=== PATIENT | male | born 2000 | race Caucasian/White ===

== ENCOUNTER 2020-10-20 15:12 | Outpatient (CLI) | payer OTHER | END 2020-10-20 15:13 | disposition home or self-care (01) | LOC: BICMRI 15:12 | PROVIDERS: ATTEND Orthopaedic Surgery | DX: M23.91 Unspecified internal derangement of right knee (principal) ==

== ENCOUNTER 2020-10-27 16:14 | Outpatient (CLI) | payer OTHER ==
[2020-10-28 05:36] LABS: SARS-CoV-2 PCR by NAA Not Detected (NotDetected)
== END 2020-10-27 16:15 | disposition home or self-care (01) ==
LOC: LABBT 16:14
PROVIDERS: ATTEND Orthopaedic Surgery
DX: Z01.812 Encounter for preprocedural laboratory examination (principal); S83.004A Unspecified dislocation of right patella, initial encounter; Z20.822 Contact with and (suspected) exposure to COVID-19
CPT/HCPCS: 87635; U0003; U0005

== ENCOUNTER 2020-10-30 11:02 | Observation (INO) | payer OTHER ==
[2020-10-30] MEDS ORDERED: Midazolam HCl 2 mg/2 ml Vial ONE (13:00)
[2020-10-30] MEDS ORDERED: Fentanyl 100 MCG/2 ML VIAL ONE ×3 (13:00→17:03)
[2020-10-30] MEDS ORDERED: PROPOFOL 200 MG/20 ML VIAL ONE (14:33)
[2020-10-30] MEDS ORDERED: Lidocaine 1% PF 5 ML VIAL ONE (14:33)
[2020-10-30] MEDS ORDERED: Ondansetron PF 4 MG/2 ML Vial ONE (14:33)
[2020-10-30] MEDS ORDERED: Dexamethasone 20 MG/5 ML VIAL ONE (14:33)
[2020-10-30] MEDS ORDERED: PHENYLEPHRINE-NS 100 MCG/ML 10 ML SYRINGE ONE (14:33)
[2020-10-30] MEDS ORDERED: Ropivacaine 0.5% HCl/PF (150 MG/30 ML VIAL) ONE (14:33)
[2020-10-30] MEDS ORDERED: Fentanyl 100 MCG/2 ML VIAL SLOW IVP PRN (15:24)
[2020-10-30] MEDS ORDERED: Promethazine HCl 25 MG/ML VIAL IM PRN (15:30)
[2020-10-30] MEDS ORDERED: Ondansetron PF 4 MG/2 ML Vial IVP PRN (15:30)
[2020-10-30] MEDS ORDERED: traMADol HCl 50 MG TAB PO PRN (15:30)
[2020-10-30] MEDS ORDERED: HYDROcodone/Acetaminophen 10/325 mg Tablet PO PRN ×2 (15:30)
[2020-10-30] MEDS ORDERED: Ketorolac Tromethamine 30 MG/ML VIAL IVP PRN (15:30)
[2020-10-30] MEDS ORDERED: Ropivacaine 0.2% 550 ML 550 ML NERVE BLCK SCH (15:30)
[2020-10-30] MEDS ORDERED: Zolpidem Tartrate 5 MG TAB PO PRN (15:30)
[2020-10-30] MEDS ORDERED: Bisacodyl 10 MG SUPP PR PRN (16:34)
[2020-10-30] MEDS ORDERED: Milk Of Magnesia 30 ML UDCUP PO PRN (16:34)
[2020-10-30] MEDS ORDERED: Methocarbamol 500 MG TAB PO PRN (16:34)
[2020-10-30] MEDS ORDERED: Acetaminophen 500 MG TAB PO PRN (16:34)
[2020-10-30] MEDS ORDERED: diphenhydrAMINE 50 MG CAP PO PRN (16:34)
[2020-10-30] MEDS ORDERED: HYDROcodone/Acetaminophen 7.5/325 mg Tablet PO PRN ×2 (16:34)
[2020-10-30] MEDS: Dextrose 5 %-0.45 % NaCl 1,000 ML IV SCH (19:29)
[2020-10-30] MEDS: Famotidine 20 MG TAB PO SCH (20:33)
[2020-10-30] MEDS: CEFAZOLIN 2 GM in Premix Bag 1 BAG IVPB SCH (20:34)
[2020-10-30] MEDS: traMADol HCl 50 MG TAB PO PRN (20:35)
[2020-10-30 22:33] VITALS: BMI 21.2
[2020-10-31] MEDS: CEFAZOLIN 2 GM in Premix Bag 1 BAG IVPB SCH (03:41)
[2020-10-31] MEDS: traMADol HCl 50 MG TAB PO PRN (03:41)
[2020-10-31] MEDS: Dextrose 5 %-0.45 % NaCl 1,000 ML IV SCH ×2 (04:01→17:37)
[2020-10-31] MEDS: Famotidine 20 MG TAB PO SCH (08:39)
[2020-10-31] MEDS ORDERED: Lisdexamfetamine Dimesylate [Vyvanse] 40 MG Capsule PO SCH (09:00)
[2020-10-31 15:48] VITALS: BP 108/60; TEMP 99
== END 2020-10-31 17:37 | disposition home or self-care (01) ==
LOC: SDC 11:02 → SJJU 16:38
PROVIDERS: ADMIT Orthopaedic Surgery; ATTEND Orthopaedic Surgery
PROC: 0SBC4ZZ Excision of Right Knee Joint, Percutaneous Endoscopic Approach (ICD-10-PCS; principal; 2020-10-30)
PROC: 0QSD04Z Reposition Right Patella with Internal Fixation Device, Open Approach (ICD-10-PCS; 2020-10-30)
PROC: 3E0T3BZ Introduction of Anesthetic Agent into Peripheral Nerves and Plexi, Percutaneous Approach (ICD-10-PCS; 2020-10-30)
PROC: 0LQQ0ZZ Repair Right Knee Tendon, Open Approach (ICD-10-PCS; 2020-10-30)
DX: S82.091A Other fracture of right patella, initial encounter for closed fracture (principal); S86.811A Strain of other muscle(s) and tendon(s) at lower leg level, right leg, initial encounter; G89.18 Other acute postprocedural pain; V19.9XXA Pedal cyclist (driver) (passenger) injured in unspecified traffic accident, initial encounter
CPT/HCPCS: 76000; 96374; 96376; A4306; C1713; G0378; J0690; J1100; J2250; J2405; J2704; J2795; J3010